=== PATIENT | female | born 2005 | race Caucasian/White ===

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

== ENCOUNTER 2024-05-21 09:07 | Outpatient (CLI) | payer BC, SELFPAY | END 2024-05-21 09:08 | disposition home or self-care (01) | PROVIDERS: PCP Family Medicine; Visit Provider Registered Nurse | DX: F41.9 Anxiety disorder, unspecified (principal) | CPT/HCPCS: 80048; 84443 ==